=== PATIENT | male | born 1940 | race Caucasian/White ===

== ENCOUNTER 2019-03-20 21:38 | Inpatient (IN) ==
[2019-03-20] MEDS ORDERED: ONDANSETRON 4 MG/2 ML VIAL IV STA (22:39)
[2019-03-20] MEDS ORDERED: MORPHINE 4 MG/1 ML VIAL IV STA (22:39)
[2019-03-20] MEDS ORDERED: SODIUM CHLORIDE 0.9% 1,000 ML IV STA (22:39)
[2019-03-20 23:20] LABS: Basophils # 0.1 10*3/uL (0.0-0.2); Basophils % 0.4 % (0.0-0.8); Eosinophils # 0.1 10*3/uL (0.0-0.87); Eosinophils % 0.9 % (0.00-10.9); Hematocrit 46.2 VOL% (42.0-52.0); Hemoglobin 14.7 GM/DL (14.0-18.0); Immature Granulocytes % 0.4 %; Immature Granulocytes Absolute 0.05 #; Lymphocytes # 1.7 10*3/uL (1.4-4.0); Lymphocytes % 14.9 % (21.2-54.2); Mean Corpuscular HGB Conc 31.8 GM/DL (32-36); Mean Corpuscular Volume 87.3 FL (87-102); Mean Platelet Volume 9.7 FL (9.6-12.0); Monocytes % 6.9 % (1.7-12.7); Neutrophils % 76.5 % (38.7-73.9); Platelet Count 233 T/CUMM (130-400); Red Blood Count 5.29 MC/CUMM (3.8-5.5); Red Cell Distribution Width 15.9 % (9.3-17.3); White Blood Count 11.3 T/CUMM (4-12)
[2019-03-20 23:33] LABS: Albumin 3.7 G/DL (3.4-5.0); Bilirubin,Total 1.3 MG/DL (0.2-1.0); Calcium 9.3 MG/DL (8.5-10.1); Osmolality,Calculated 274.8 MOS/KG (273-304); Total Protein 8.6 G/DL (6.4-8.3)
[2019-03-21 00:26] LABS: Apearance,Urine CLEAR (Clear); Bilirubin,Urine Negative (Negative); Blood, Urine Moderate mg/dL (Negative); Glucose,Urine (UA) Negative (Negative); Ketones,Urine 5 mg/dL (Negative); Mucus,Urine Occasional /LPF (Occasional); Nitrite,Urine Negative (Negative); Protein,Urine Negative; RBC,Urine 5 /HPF (0-4); Urine Color Yellow (Yellow); Urine Urobilinogen < 2.0 EU/DL (0.2-1.0); WBC,Urine 1 /HPF (0-6)
[2019-03-21] MEDS: DEXTROSE 5% NACL 0.45% 1,000 ML IV SCH ×3 (02:47→18:28)
[2019-03-21] MEDS: MORPHINE 4 MG/1 ML VIAL IV PRN ×3 (03:39→18:22)
[2019-03-21] MEDS: ONDANSETRON 4 MG/2 ML VIAL IV PRN ×2 (03:40→18:32)
[2019-03-21] MEDS ORDERED: INFLUENZA VIRUS VACCINE 0.5 ML SYRINGE IM ONE (04:36)
[2019-03-21 05:17] LABS: Basophils % 0.3 % (0.0-0.8); Eosinophils # 0.1 10*3/uL (0.0-0.87); Eosinophils % 0.7 % (0.00-10.9); Hematocrit 40.6 VOL% (42.0-52.0); Hemoglobin 12.9 GM/DL (14.0-18.0); Immature Granulocytes % 0.3 %; Immature Granulocytes Absolute 0.02 #; Lymphocytes # 1.3 10*3/uL (1.4-4.0); Lymphocytes % 17.6 % (21.2-54.2); Mean Corpuscular HGB Conc 31.8 GM/DL (32-36); Mean Corpuscular Volume 88.5 FL (87-102); Mean Platelet Volume 9.9 FL (9.6-12.0); Monocytes % 7.9 % (1.7-12.7); Neutrophils % 73.2 % (38.7-73.9); Platelet Count 190 T/CUMM (130-400); Red Blood Count 4.59 MC/CUMM (3.8-5.5); Red Cell Distribution Width 15.9 % (9.3-17.3); White Blood Count 7.2 T/CUMM (4-12)
[2019-03-21 05:42] LABS: Albumin 3.1 G/DL (3.4-5.0); Bilirubin,Total 1.1 MG/DL (0.2-1.0); Calcium 8.6 MG/DL (8.5-10.1); Osmolality,Calculated 278.5 MOS/KG (273-304); Total Protein 7.2 G/DL (6.4-8.3)
[2019-03-21] MEDS: PANTOPRAZOLE 40 MG VIAL IV SCH (09:07)
[2019-03-21] MEDS: GABAPENTIN 600 MG TABLET PO SCH ×2 (15:43→21:38)
[2019-03-21] MEDS ORDERED: PHENOL 1.4% THROAT SPRAY 177 ML BOTTLE PO PRN (17:56)
[2019-03-22] MEDS: DEXTROSE 5% NACL 0.45% 1,000 ML IV SCH ×3 (02:28→13:56)
[2019-03-22 07:45] LABS: Basophils % 0.3 % (0.0-0.8); Eosinophils # 0.1 10*3/uL (0.0-0.87); Eosinophils % 1.9 % (0.00-10.9); Hematocrit 39.8 VOL% (42.0-52.0); Hemoglobin 12.6 GM/DL (14.0-18.0); Immature Granulocytes % 0.3 %; Immature Granulocytes Absolute 0.02 #; Lymphocytes # 1.2 10*3/uL (1.4-4.0); Lymphocytes % 17.6 % (21.2-54.2); Mean Corpuscular HGB Conc 31.7 GM/DL (32-36); Mean Corpuscular Volume 88.4 FL (87-102); Mean Platelet Volume 9.3 FL (9.6-12.0); Monocytes % 9.3 % (1.7-12.7); Neutrophils % 70.6 % (38.7-73.9); Platelet Count 179 T/CUMM (130-400); Red Cell Distribution Width 15.9 % (9.3-17.3); White Blood Count 6.8 T/CUMM (4-12)
[2019-03-22 08:14] LABS: Calcium 8.2 MG/DL (8.5-10.1); Osmolality,Calculated 272.7 MOS/KG (273-304)
[2019-03-22] MEDS ORDERED: SOTALOL 80 MG TABLET PO SCH (09:00)
[2019-03-22] MEDS: ASPIRIN EC 325 MG TABLET PO SCH (09:48)
[2019-03-22] MEDS: TAMSULOSIN 0.4 MG CAPSULE PO SCH (09:48)
[2019-03-22] MEDS: GABAPENTIN 600 MG TABLET PO SCH ×3 (09:48→21:24)
[2019-03-22] MEDS: PANTOPRAZOLE 40 MG VIAL IV SCH (09:49)
[2019-03-22] MEDS: POTASSIUM CHLORIDE RIDER 10 MEQ in PREMIX 1 EACH IV PRN ×2 (11:44→12:43)
[2019-03-22] MEDS ORDERED: MAGNESIUM SULF RIDER 4 GM in PREMIX 1 EACH IV ONE (13:29)
[2019-03-22] MEDS: POTASSIUM CHLORIDE RIDER 10 MEQ in PREMIX 1 EACH IV SCH ×3 (13:57→16:05)
[2019-03-23] MEDS: DEXTROSE 5% NACL 0.45% 1,000 ML IV SCH ×6 (05:06→21:03)
[2019-03-23 07:44] LABS: Basophils % 0.7 % (0.0-0.8); Eosinophils # 0.2 10*3/uL (0.0-0.87); Eosinophils % 3.7 % (0.00-10.9); Hemoglobin 12.8 GM/DL (14.0-18.0); Immature Granulocytes % 0.3 %; Immature Granulocytes Absolute 0.02 #; Lymphocytes # 1.2 10*3/uL (1.4-4.0); Mean Corpuscular HGB Conc 31.2 GM/DL (32-36); Mean Corpuscular Volume 89.9 FL (87-102); Mean Platelet Volume 9.5 FL (9.6-12.0); Monocytes % 9.4 % (1.7-12.7); Neutrophils % 64.9 % (38.7-73.9); Platelet Count 161 T/CUMM (130-400); Red Blood Count 4.56 MC/CUMM (3.8-5.5); White Blood Count 5.9 T/CUMM (4-12)
[2019-03-23 08:00] LABS: Osmolality,Calculated 277.3 MOS/KG (273-304)
[2019-03-23] MEDS: GABAPENTIN 600 MG TABLET PO SCH ×3 (08:31→20:25)
[2019-03-23] MEDS: ASPIRIN EC 325 MG TABLET PO SCH (08:31)
[2019-03-23] MEDS: SOTALOL 80 MG TABLET PO SCH ×2 (08:31→20:25)
[2019-03-23] MEDS: TAMSULOSIN 0.4 MG CAPSULE PO SCH (08:31)
[2019-03-23] MEDS: PANTOPRAZOLE 40 MG VIAL IV SCH (08:31)
[2019-03-24] MEDS: DEXTROSE 5% NACL 0.45% 1,000 ML IV SCH (05:15)
[2019-03-24] MEDS: ASPIRIN EC 325 MG TABLET PO SCH (09:32)
[2019-03-24] MEDS: GABAPENTIN 600 MG TABLET PO SCH (09:32)
[2019-03-24] MEDS: PANTOPRAZOLE 40 MG VIAL IV SCH (09:32)
[2019-03-24] MEDS: TAMSULOSIN 0.4 MG CAPSULE PO SCH (09:32)
[2019-03-24] MEDS: SOTALOL 80 MG TABLET PO SCH (09:32)
[2019-03-24 11:48] VITALS: BP 121/49
== END 2019-03-24 12:30 | disposition home or self-care (01) | DRG 390 ==
LOC: N.ED 21:38 → N.EDINP 03-21 00:55 → N.3E 03-21 02:01
PROVIDERS: ADMIT Student in an Organized Health Care Education/Training Program; ATTEND Student in an Organized Health Care Education/Training Program